=== PATIENT | female | born 1940 | race Caucasian/White ===

== ENCOUNTER 2019-10-28 13:46 | Emergency (ER) | payer MEDICARE, BC ==
--- NOTE | 2019-10-28 14:31 | ED ---
Lower Extremity - HPI Summary HPI Summary: Patient is a 79-year-old female who presents emergency department for left lower leg injury that occurred today. Patient states she was loading a cooler into a van when she actually fell backwards and twisted her left leg. Denies loss of consciousness or head injury. Complains of left knee pain. Denies numbness, tingling in leg. Symptoms are mild in severity. Moving and walking makes symptoms worse. Nothing makes symptoms better. - History of Current Complaint Chief Complaint: EDExtremityLower Stated Complaint: L LEG INJ FROM FALL PER PT Time Seen by Provider: 10/28/19 14:00 Hx Obtained From: Patient Pain Intensity: 3 - Allergies/Home Medications Allergies/Adverse Reactions: Allergies Allergy/AdvReac Type Severity Reaction Status Date / Time Penicillins Allergy Severe Hives Verified 10/28/19 14:19 Sulfa (Sulfonamide Allergy Rash Verified 10/28/19 14:19 Antibiotics) PMH/Surg Hx/FS Hx/Imm Hx Previously Healthy: Yes Endocrine/Hematology History: Reports: Hx Thyroid Disease - Natali Denies: Hx Anticoagulant Therapy, Hx Diabetes Cardiovascular History: Denies: Hx Hypertension, Hx Pacemaker/ICD Respiratory History: Denies: Hx Asthma, Hx Chronic Obstructive Pulmonary Disease (COPD) History: Denies: Hx Renal Disease Sensory History: Denies: Hx Hearing Aid Neurological History: Denies: Hx Dementia, Hx Seizures Psychiatric History: Denies: Hx Panic Disorder, Hx Substance Abuse - Surgical History Surgery Procedure, Year, and Place: , OVARIAN CYST REMOVAL, ANKLE REPAIR WITH ORIF, HERNIA REPAIR. Infectious Disease History: No Infectious Disease History: Denies: Hx Hepatitis, Hx Human Immunodeficiency Virus (HIV), Traveled Outside the [place] in Last 30 Days - Family History Known Family History: Positive: Cardiac Disease, Non-Contributory - Social History Occupation: Retired Lives: With Family Alcohol Use: None Substance Use Type: Reports: None Hx Tobacco Use: No Smoking Status (MU): Never Smoked Tobacco Review of Systems Positive: Other - left knee pain Skin: Negative Neurological/Mental Status: Negative Negative: Weakness, Paresthesia, Numbness All Other Systems Reviewed And Are Negative: Yes Physical Exam Triage Information Reviewed: Yes Vital Signs On Initial Exam: Initial Vitals Temp Pulse Resp BP Pulse Ox 98.0 F 70 16 149/78 99 10/28/19 13:47 10/28/19 13:47 10/28/19 13:47 10/28/19 13:47 10/28/19 13:47 Vital Signs Reviewed: Yes Appearance: Positive: Well-Appearing - Patient lying in bed in no acute distress. Friend present. Skin: Positive: Warm, Dry Head/Face: Positive: Normal Head/Face Inspection Eyes: Positive: Normal, EOMI Neck: Positive: Supple Musculoskeletal: Positive: Other - Diffuse pain to left knee. Range of motion limited secondary to pain. Good palpable DP pulse. No breaks in the skin. No hip pain, foot or ankle pain on palpation. Neurological: Positive: Normal, CN Intact II-III Psychiatric: Positive: Affect/Mood Appropriate Procedures - Sedation Patient Received Moderate/Deep Sedation with Procedure: No - Splinting Lower Extremity Pre-Made Type: knee immobilizer Pre-Proc Neuro Vasc Exam: normal Post-Proc Neuro Vasc Exam: normal Diagnostics - Vital Signs Vital Signs Temp Pulse Resp BP Pulse Ox 10/28/19 13:47 98.0 F 70 16 149/78 99 - Laboratory Lab Statement: Any lab studies that have been ordered have been reviewed, and results considered in the medical decision making process. Lower Extremity Course/Dx - Course Course Of Treatment: Patient with isolated left lower leg injury. Neurovascularly intact. Patient declines pain medication. Pending x-rays. Xrays show lateral tibial plateau fx. Case discussed with Dr. Luis, ortho. and he would like a ct for further eval. Pt. examined by ortho. Maryanne VERNON, in ED. Ortho feels pt. will likely need sx. Ortho offering admission for surgical clearance. Pt. is unsure if she wants surgery and would like to get a second opinon from her physician. Knee immobilizer placed. Walker given. Pt. declines pain medication. To ice and elevate. Advised she needs to see ortho LAURIE for definitive care. Pt. understands and agrees with plan. - Diagnoses Differential Diagnosis/HQI/PQRI: Positive: Fracture (Closed), Sprain, Strain Provider Diagnoses: Tibial plateau fracture Discharge ED - Sign-Out/Discharge Documenting (check all that apply): Patient Departure - Discharge Plan Condition: Good Disposition: HOME Patient Education Materials: Leg Fracture (ED) Referrals: Eliu Ybarra MD [Medical Doctor] - Additional Instructions: Please see orthopedics as soon as possible Keep knee immobilizer in place Do not bear weight onto left leg Tylenol for pain as directed Ice and elevate Return to ER if symptoms change or worsen - Billing Disposition and Condition Condition: GOOD Disposition: Home - Attestation Statements Provider Attestation: I was available for consultation for this patient. I did not evaluate the patient or participate in any medical decision making or disposition decisions unless I am specifically named in the chart as having consulted on the patient. If I have consulted on the patient, please see my own ED note on the patient encounter. Graciela Moon MD
[2019-10-28 16:51] VITALS: BP 150/75
--- NOTE | 2019-10-28 19:42 | CONS ---
CONSULTATION REPORT: DATE OF CONSULT: 10/28/19 ATTENDING ORTHOPEDIC PROVIDER: Dr. Eliu Ybarra. CHIEF COMPLAINT: Left tibial plateau fracture. HISTORY OF PRESENT ILLNESS: The patient is a 79-year-old female who presented to [facility] today, 10/28/19, after a fall at home. She was brought to the emergency room and identified to have a fall, occurred while the patient was loading a cooler into the back of the van, she fell to the ground. She does not know the orientation of which she fell but states that she had slipped out of the back of the van. She has no chest pain, shortness of breath , dizziness, nausea associated with the fall. She did not hit her head. She had no other injuries. Today, her left lower extremity has pain just below the knee that is sharp and severe in nature with any movement, though tolerable at rest. PAST MEDICAL HISTORY: Significant for hypothyroidism. PAST SURGICAL HISTORY: Knee arthroscopy. No history of adverse reactions from anesthesia. SOCIAL HISTORY: The patient lives at home with her . She does not use an assistive device to walk. She climbs [employer] and is very active at baseline. She does not smoke, drink or use drugs. REVIEW OF SYSTEMS: General: No fever or chills. HEENT: No head trauma, no headache. Cardiac: No chest pain. Respiratory: No shortness of breath. Abdomen: No abdominal pain, nausea, vomiting or diarrhea. Musculoskeletal: Positive for left lower extremity pain just below the knee. Neuro: No decreased sensation in bilateral extremities. PHYSICAL EXAM: Temperature 98.0, pulse rate 70, respiratory rate 16, oxygen saturation 99%, blood pressure 149/79. General: No acute distress, appears well. HEENT: Normocephalic, atraumatic. Extraocular movements intact. Cardiac : S1, S2. Respiratory: Clear to auscultation bilaterally. Abdomen: Nondistended, nontender. Musculoskeletal: Bilateral upper extremities and right lower extremity with skin envelope intact. Nontender to palpation. Able to flex and extend at all joints without any pain. Left lower extremity: The patient is tender to palpation about the tibial plateau. She is nontender to palpation throughout the rest of the leg. She is able to flex and extend at the ankle and MTPs without any pain. Negative log roll at the hip. Sensation intact to light touch distally bilateral lower extremities. DP 2+ bilateral lower extremities. ASSESSMENT: The patient has a tibial plateau fracture on the left side. PLAN: The patient was offered operative and nonoperative treatment plans. She far prefers nonoperative treatment but is open to the idea of surgery only after she has a 2nd opinion by [facility] where she has previously seen Dr Caba. She states she would like to go home and think about her options. She will be discharged to home by the emergency room. She will be in a knee immobilizer. She will be nonweightbearing. She understands that she needs to follow up with Orthopedics within 2 weeks whether it is with our office or [facility]. Dr. Ybarra made aware and is in agreement with this assessment and plan. He is happy to assist her in operative or nonoperative treatment depending on the patient's decision. SARA FIERRO [id number]/[facility] #: [id number] JALYN
== END 2019-10-28 16:41 | disposition home or self-care (01) ==
LOC: ED 13:46
DX: S82.142A Displaced bicondylar fracture of left tibia, initial encounter for closed fracture (principal); W18.30XA Fall on same level, unspecified, initial encounter; Y93.89 Activity, other specified; Y92.9 Unspecified place or not applicable; Z88.0 Allergy status to penicillin; Z88.2 Allergy status to sulfonamides; M25.562 Pain in left knee
CPT/HCPCS: 99282